=== PATIENT | male | born 1955 | race Caucasian/White ===

== ENCOUNTER 2017-05-03 06:18 | Emergency (ER) | payer BC ==
[~2017-05-03] VITALS: Ht 172.7 cm; Wt 100.0 kg
[~2017-05-03 06:18] MED LIST: CYCL-36 PO; IBUP800T23 PO; SIMV20 PO
[2017-05-03 06:27] VITALS: BP 136/75; PULSE 72; RESP 20; TEMP 98.5; O2SAT 97
[2017-05-03] MEDS ORDERED: BUPR100T4 PO (07:12)
[2017-05-03 07:16] VITALS: O2SAT 97
--- NOTE | 2017-05-03 07:35 | PD ---
HPI Chief Complaint: GI Complaint Time Seen by Provider: 07:29 Travel History International Travel<30 days: No Contact w/Intl Traveler<30days: No Traveled to known affect area: No History of Present Illness HPI This patient complains of rectal bleeding. 2 days ago it started. It's bright red blood. He is not having abdominal pain or presyncopal symptoms. No prior history of colonoscopy or GI bleeding. He takes no blood thinners and does not abuse alcohol. No alleviating factors. No exacerbating factors. Symptoms severity is moderate PFSH Past Medical History Depression: Yes High Cholesterol: Yes Diminished Hearing: No Triglycerides - High: Yes Influenza Vaccination: Yes Past Surgical History Cholecystectomy: Yes Social History Alcohol Use: No Tobacco Use: No Substance Use: No Allergies-Medications (Allergen,Severity, Reaction): Coded Allergies: Sulfa (Sulfonamide Antibiotics) (Unverified Allergy, Severe, HIVES, ) zinc (Unverified Allergy, Severe, HIVES, 05/03/17) zinc oxide (Unverified Allergy, Severe, HIVES, 05/03/17) Reported Meds & Prescriptions Reported Meds & Active Scripts Active Reported Bupropion HCl 100 Mg Tab 100 Mg PO DAILY Ibuprofen 800 Mg Tab 800 Mg PO Q6H PRN Zocor (Simvastatin) 20 Mg Tab 40 PO DAILY Review of Systems General / Constitutional: No: Fever Eyes: No: Visual changes HENT: No: Headaches Cardiovascular: No: Chest Pain or Discomfort Respiratory: No: Shortness of Breath Gastrointestinal: Positive: Hematochezia, No: Abdominal Pain Genitourinary: No: Dysuria Musculoskeletal: No: Pain Skin: No Rash Neurologic: No: Weakness Psychiatric: No: Depression Endocrine: No: Polydipsia Hematologic/Lymphatic: No: Easy Bruising Physical Exam Narrative GENERAL: Well-nourished, well-developed patient in no apparent distress. SKIN: Focused skin assessment reveals no rash and nodules. Skin is Warm and dry. HEAD: Atraumatic. Normocephalic. EYES: Pupils equal and round. No scleral icterus. No injection or drainage. ENT: No nasal bleeding or discharge. Mucous membranes pink and moist. NECK: Trachea midline. No JVD. CARDIOVASCULAR: Regular rate and rhythm. No murmur appreciated. RESPIRATORY: No accessory muscle use. Clear to auscultation. Breath sounds equal bilaterally. GASTROINTESTINAL: Abdomen soft, non-tender, nondistended. Hepatic and splenic margins not palpable. MUSCULOSKELETAL: No obvious deformities. No clubbing. No cyanosis. No edema. NEUROLOGICAL: Awake and alert. No obvious cranial nerve deficits. Motor grossly within normal limits. Normal speech. PSYCHIATRIC: Appropriate mood and affect; insight and judgment normal. Rectal: No fissure or external hemorrhoid noted Data Data Last Documented VS Vital Signs Date Time Temp Pulse Resp B/P (MAP) Pulse Ox O2 Delivery O2 Flow Rate FiO2 05/03/17 07:16 97 Room Air 05/03/17 07:16 05/03/17 06:27 98.5 72 20 Orders Orders Complete Blood Count With Diff (05/03/17 06:57) Prothrombin Time / Inr (Pt) (05/03/17 06:57) Act Partial Throm Time (Ptt) (05/03/17 06:57) Ecg Monitoring (05/03/17 06:57) Orthostatic Vital Signs (05/03/17 06:57) Oximetry (05/03/17 06:57) Oxygen Administration (05/03/17 06:57) Iv Access Insert/Monitor (05/03/17 06:57) Labs Laboratory Tests Test 05/03/17 07:35 White Blood Count 7.9 TH/MM3 Red Blood Count 5.16 MIL/MM3 Hemoglobin 13.8 GM/DL Hematocrit 42.8 % Mean Corpuscular Volume 83.0 FL Mean Corpuscular Hemoglobin 26.8 PG Mean Corpuscular Hemoglobin Concent 32.3 % Red Cell Distribution Width 13.0 % Platelet Count 176 TH/MM3 Mean Platelet Volume 8.6 FL Neutrophils (%) (Auto) 66.0 % Lymphocytes (%) (Auto) 21.9 % Monocytes (%) (Auto) 8.9 % Eosinophils (%) (Auto) 2.4 % Basophils (%) (Auto) 0.8 % Neutrophils # (Auto) 5.2 TH/MM3 Lymphocytes # (Auto) 1.7 TH/MM3 Monocytes # (Auto) 0.7 TH/MM3 Eosinophils # (Auto) 0.2 TH/MM3 Basophils # (Auto) 0.1 TH/MM3 CBC Comment DIFF FINAL Differential Comment Prothrombin Time 10.5 SEC Prothromb Time International Ratio 1.0 RATIO Activated Partial Thromboplast Time 25.5 SEC MDM Medical Decision Making Medical Screen Exam Complete: Yes Emergency Medical Condition: Yes Medical Record Reviewed: Yes Differential Diagnosis AV malformation, internal hemorrhoid, diverticular bleed Narrative Course I have reviewed the patient's electronic medical record. IV placed and labs sent CBC shows hemoglobin of 13.8 Coagulation studies are normal No active bleeding here. Stable for outpatient GI follow-up to discuss colonoscopy Diagnosis Primary Impression: Rectal bleeding Additional Instructions: Follow-up with GI physician to discuss colonoscopy Med/Other Pt SpecificInfo: Other Disposition: 01 DISCHARGE HOME Condition: Stable Good Parker MD May 03, 2017 07:35
[2017-05-03 07:42] LABS: AUTOMATED NEUTROPHIL # 5.2 TH/MM3 (1.8-7.7); BASOPHIL # 0.1 TH/MM3 (0-0.2); BASOPHIL % 0.8 % (0.0-2.0); EOSINOPHIL # 0.2 TH/MM3 (0-0.4); EOSINOPHIL % 2.4 % (0.0-4.0); HEMATOCRIT 42.8 % (39.0-51.0); HEMOGLOBIN 13.8 GM/DL (13.0-17.0); LYMPH % 21.9 % (9.0-44.0); LYMPHOCYTE # 1.7 TH/MM3 (1.0-4.8); MEAN CORPUSCULAR HEMOGLOBIN 26.8 PG (27.0-34.0); MEAN CORPUSCULAR HGB CONC 32.3 % (32.0-36.0); MEAN PLATELET VOLUME 8.6 FL (7.0-11.0); MONO % 8.9 % (0.0-8.0); MONOCYTE # 0.7 TH/MM3 (0-0.9); PLATELET COUNT 176 TH/MM3 (150-450); RED BLOOD COUNT 5.16 MIL/MM3 (4.50-5.90); WHITE BLOOD COUNT 7.9 TH/MM3 (4.0-11.0)
[2017-05-03 08:00] LABS: PROTHROMBIN TIME - PATIENT 10.5 SEC (9.8-11.6)
[2017-05-03 09:26] VITALS: BP 135/84
== END 2017-05-03 09:27 | disposition home or self-care (01) ==
LOC: PHED 06:18
DX: K62.5 Hemorrhage of anus and rectum (principal); K92.1 Melena
CPT/HCPCS: 85025; 85610; 85730; 99283